=== PATIENT | female | born 1950 | race Caucasian/White ===

== ENCOUNTER 2023-05-07 16:22 | Outpatient (RCR) | payer MEDICARE, OTHER, SELFPAY | END 2023-05-07 23:59 | disposition home or self-care (01) | LOC: RPT 16:22 | PROVIDERS: ATTENDING PHYSICIAN Orthopaedic Surgery; FAMILY PHYSICIAN Internal Medicine Geriatric Medicine | DX: Z47.1 Aftercare following joint replacement surgery (principal); Z96.651 Presence of right artificial knee joint; R26.89 Other abnormalities of gait and mobility | CPT/HCPCS: 97010; 97110 ==

== ENCOUNTER 2023-06-18 15:59 | Outpatient (RCR) | payer MEDICARE, OTHER, SELFPAY | END 2023-06-18 23:59 | disposition home or self-care (01) | LOC: RPT 15:59 | PROVIDERS: ATTENDING PHYSICIAN Orthopaedic Surgery; FAMILY PHYSICIAN Internal Medicine Geriatric Medicine | DX: Z47.1 Aftercare following joint replacement surgery (principal); Z73.6 Limitation of activities due to disability; R26.89 Other abnormalities of gait and mobility; M25.561 Pain in right knee; Z96.651 Presence of right artificial knee joint | CPT/HCPCS: 97010; 97110 ==

== ENCOUNTER 2023-07-15 09:04 | Outpatient (RCR) | payer MEDICARE, OTHER, SELFPAY | END 2023-07-15 23:59 | disposition home or self-care (01) | LOC: RPT 09:04 | PROVIDERS: ATTENDING PHYSICIAN Orthopaedic Surgery; FAMILY PHYSICIAN Internal Medicine Geriatric Medicine | DX: Z47.1 Aftercare following joint replacement surgery (principal); Z73.6 Limitation of activities due to disability; R26.89 Other abnormalities of gait and mobility; M25.561 Pain in right knee; M62.81 Muscle weakness (generalized); Z96.651 Presence of right artificial knee joint | CPT/HCPCS: 97010; 97110 ==

== ENCOUNTER → 2023-12-09 12:15 | Outpatient (REF) | payer MEDICARE, OTHER, SELFPAY | LOC: REG 12:15 | PROVIDERS: ATTENDING PHYSICIAN Internal Medicine Geriatric Medicine | DX: E11.9 Type 2 diabetes mellitus without complications (principal); D50.0 Iron deficiency anemia secondary to blood loss (chronic); E78.2 Mixed hyperlipidemia; I10 Essential (primary) hypertension; M25.562 Pain in left knee; K21.9 Gastro-esophageal reflux disease without esophagitis; K22.70 Barrett's esophagus without dysplasia; M23.207 Derangement of unspecified meniscus due to old tear or injury, left knee; M71.22 Synovial cyst of popliteal space [Baker], left knee; R11.0 Nausea; Z13.31 Encounter for screening for depression; M79.10 Myalgia, unspecified site; N39.41 Urge incontinence; G25.81 Restless legs syndrome; N32.81 Overactive bladder; M17.11 Unilateral primary osteoarthritis, right knee; R06.09 Other forms of dyspnea; Z12.31 Encounter for screening mammogram for malignant neoplasm of breast | CPT/HCPCS: 72052 ==

== ENCOUNTER → 2024-03-03 17:28 | Outpatient (REF) | payer MEDICARE, OTHER, SELFPAY | LOC: PAVMRI 17:28 | PROVIDERS: ATTENDING PHYSICIAN Internal Medicine Geriatric Medicine | DX: M54.2 Cervicalgia (principal); G44.209 Tension-type headache, unspecified, not intractable | CPT/HCPCS: 72141 ==

== ENCOUNTER → 2024-07-06 08:47 | Outpatient (REF) | payer MEDICARE, OTHER, SELFPAY | LOC: RAD 08:47 | PROVIDERS: ATTENDING PHYSICIAN Specialist; FAMILY PHYSICIAN Internal Medicine Geriatric Medicine | DX: R51.9 Headache, unspecified (principal) | CPT/HCPCS: 70470; Q9967 ==